=== PATIENT | female | born 1990 | race Caucasian/White ===

== ENCOUNTER 2020-06-06 11:29 | Outpatient (REF) | payer OTHER, SELFPAY ==
[2020-06-06 15:26] LABS: Alanine Aminotransferase 65 U/L (0-31); Albumin Level 4.5 g/dL (3.5-5.0); Alkaline Phosphatase 64 U/L (39-117); Anion Gap 15 (12-20); Aspartate Amino Transferase 44 U/L (5-31); Bilirubin Total 0.4 mg/dL (0.0-1.0); Blood Urea Nitrogen 10 mg/dL (9-16); Calcium 9.1 mg/dL (8.4-10.2); Carbon Dioxide 26 mmol/L (22-29); Chloride 104 mmol/L (96-108); Cholesterol 199 mg/dL; Estimated Glomerular Filt Rate > 60; Glucose Fasting 81 mg/dL (60-99); HDL Cholesterol 61 mg/dL; LDL Cholesterol Calculated 110 mg/dl; Potassium 4.7 mmol/l (3.3-5.1); Sodium 140 mmol/L (135-145); Total Protein 7.2 g/dL (6.5-8.0); Triglycerides 141 mg/dL
== END 2020-06-06 11:30 | disposition home or self-care (01) ==
LOC: HO.HMGCLDS 11:29
PROVIDERS: PCP Nurse Practitioner Family; Visit Provider Nurse Practitioner Family
DX: Z00.00 Encounter for general adult medical examination without abnormal findings (principal)
CPT/HCPCS: 80053; 80061; 84443

== ENCOUNTER 2021-02-27 09:43 | Outpatient (REF) | payer OTHER, SELFPAY ==
--- NOTE | ~2021-02-27 | XR_ITS ---
EXAMINATION: XR KNEE, RIGHT CLINICAL INFORMATION: Pain. COMPARISON: None TECHNIQUE: AP, lateral, tunnel, and sunrise views of the right knee. FINDINGS: Bones and soft tissues are normal. No fracture or significant joint effusion. Alignment is anatomic. Joint spaces are well maintained. No abnormal soft tissue calcification. XR/XR knee RT 4V IMPRESSION: Normal right knee.
== END 2021-02-27 09:44 | disposition home or self-care (01) ==
LOC: HO.XRAY 09:43
PROVIDERS: PCP Nurse Practitioner Family; Visit Provider Nurse Practitioner Family
DX: M25.561 Pain in right knee (principal)
CPT/HCPCS: 73564

== ENCOUNTER 2021-06-07 09:49 | Outpatient (REF) | payer OTHER, SELFPAY ==
[2021-06-07 11:16] LABS: Appearance Urine HAZY; Color Urine YELLOW; Glucose Urine UA NEG (NEG); Leukocyte Esterase Urine TRACE (NEG); MANUAL DIFF FLAG NO; Nitrite Urine NEG (NEG); PH 6.5 (5.0-8.0); Specific Gravity - Urine 1.015 (1.005-1.025); UACC Culture Trigger YES; Urine Blood NEG (NEG); Urine Ketones NEG (NEG); Urine Protein NEG (NEG-TRACE)
[2021-06-07 11:20] LABS: Basophils Percent Auto 0.2 % (0-2); Hemoglobin 14.9 g/dl (12.0-16.0); Imm Gran Abs Auto 0.02 X10*3/uL (0.00-0.03); Imm Gran Pct Auto 0.2 % (0.0-0.4); Lymphocytes Percent Auto 23.3 % (20-40); Mean Corpuscular HGB Conc 33.1 g/dl (31.0-35.0); Mean Corpuscular Hemoglobin 30.7 pg (27.0-33.0); Mean Corpuscular Volume 92.6 fL (80.0-98.0); Mean Platelet Volume 9.7 fL (9.4-12.3); Monocytes Absolute Auto 0.5 X10*3/uL (0.1-1.2); Neutrophils Absolute Auto 6.1 x10*3/uL (2.0-8.3); Neutrophils Percent Auto 70.3 % (45-73); Platelet Count 322 X10*3/uL (160-400); Red Blood Count 4.86 X10*6/uL (4.20-5.50); Red Cell Distribution Width 11.5 % (11.0-16.0); White Blood Count 8.7 X10*3/uL (4.8-10.8)
[2021-06-07 11:34] LABS: Bacteria Urine 3+ /LPF; RBC Urine 0 /HPF (0); Squamous Epithelial Cell Urine 3+ /LPF; WBC Urine 0-2 /HPF (0-4)
[2021-06-07 11:38] LABS: Alanine Aminotransferase 65 U/L (0-31); Albumin Level 4.6 g/dL (3.5-5.0); Alkaline Phosphatase 67 U/L (39-117); Anion Gap 10 (12-20); Aspartate Amino Transferase 40 U/L (5-31); Bilirubin Total 0.8 mg/dL (0.0-1.0); Blood Urea Nitrogen 6 mg/dL (9-16); C Reactive Protein 0.58 mg/dL (< or = 0.50); Calcium 9.5 mg/dL (8.4-10.2); Carbon Dioxide 28 mmol/L (22-29); Chloride 103 mmol/L (96-108); Cholesterol 227 mg/dL; Estimated Glomerular Filt Rate > 60; Glucose Fasting 95 mg/dL (60-99); HDL Cholesterol 62 mg/dL; Iron 102 mcg/dL (30-160); LDL Cholesterol Calculated 130 mg/dl; Percent Iron Saturation 25 % (15-50); Potassium 4.4 mmol/L (3.3-5.1); Sodium 137 mmol/L (135-145); Total Iron Binding Capacity 412 mcg/dL (228-428); Total Protein 7.3 g/dL (6.5-8.0); Triglycerides 178 mg/dL; Unsaturated Iron Binding 310 ug/dL
[2021-06-07 12:00] LABS: Ferritin 67 ng/mL (10-122); TSH reflex Free T4 0.66 uIU/mL (0.32-4.0)
[2021-06-07 12:18] LABS: Folate 9.8 ng/mL (> or = 4.0); Vitamin B12 1050 pg/mL (200-900)
[2021-06-07 12:39] LABS: Erythrocyte Sedimentation Rate 6 MM/HR (0-20)
[2021-06-09 10:35] LABS: Lyme Abs Screen POSITIVE
[2021-06-10 15:06] LABS: Anti Nuclear Antibody Screen NEGATIVE (NEGATIVE)
[2021-06-13 12:22] LABS: 18 KD (IgG) Band NON-REACTIVE; 23 KD (IgG) Band NON-REACTIVE; 23 KD (IgM) Band NON-REACTIVE; 28 KD (IgG) Band NON-REACTIVE; 30 KD (IgG) Band NON-REACTIVE; 39 KD (IgM) Band NON-REACTIVE; 41 KD (IgM) Band NON-REACTIVE; 45 KD (IgG) Band NON-REACTIVE; 58 KD (IgG) Band REACTIVE; 66 KD (IgG) Band NON-REACTIVE; 93 KD (IgG) Band NON-REACTIVE; Lyme IgG Blot Interp NEGATIVE (NEGATIVE); Lyme IgM Blot Interp NEGATIVE (NEGATIVE)
[2021-06-14 06:41] LABS: Antibody to SS-A Antigen <1.0 NEG AI (<1.0 NEG); Antibody to SS-B Antigen <1.0 NEG AI (<1.0 NEG)
== END 2021-06-07 09:50 | disposition home or self-care (01) ==
LOC: HO.HMGCLDS 09:49
PROVIDERS: PCP Nurse Practitioner Family; Visit Provider Nurse Practitioner Family
DX: Z00.00 Encounter for general adult medical examination without abnormal findings (principal); R53.83 Other fatigue
CPT/HCPCS: 36415; 80053; 80061; 81001; 82607; 82728; 82746; 83540; 84443; 85025; 85652; 86038; 86039; 86140; 86235; 86617; 86618; 87086

== ENCOUNTER → 2022-08-26 13:18 | Outpatient (REF) | payer OTHER, SELFPAY ==
--- NOTE | 2022-08-26 13:21 | HM_ITS ---
* Total monitoring time 3 days. * Underlying rhythm is sinus. Average ventricular rate 83/Min. Range 58 to 139/min. * Very rare PVCs- only 2 PVCs over 3 days. * No significant pauses or AV blocks. * Patient symptoms including lightheadedness, chest pain, chest tightness, heart racing correlate with sinus rhythm. MTDD
== END ==
LOC: HO.CARD 13:18
PROVIDERS: PCP Nurse Practitioner Family; Visit Provider Nurse Practitioner Family
DX: R00.0 Tachycardia, unspecified (principal)
CPT/HCPCS: 93242

== ENCOUNTER 2022-09-24 10:17 | Outpatient (REF) | payer OTHER, SELFPAY ==
[2022-09-24 11:04] LABS: MANUAL DIFF FLAG NO
[2022-09-24 11:12] LABS: Basophils Percent Auto 0.1 % (0-2); Hematocrit 44.4 % (37.0-47.0); Hemoglobin 14.9 g/dl (12.0-16.0); Imm Gran Abs Auto 0.02 X10*3/uL (0.00-0.03); Imm Gran Pct Auto 0.3 % (0.0-0.4); Lymphocytes Absolute Auto 1.9 X10*3/uL (1.2-4.9); Lymphocytes Percent Auto 25.4 % (20-40); Mean Corpuscular HGB Conc 33.6 g/dl (31.0-35.0); Mean Corpuscular Hemoglobin 31.4 pg (27.0-33.0); Mean Corpuscular Volume 93.5 fL (80.0-98.0); Mean Platelet Volume 9.5 fL (9.4-12.3); Monocytes Absolute Auto 0.4 X10*3/uL (0.1-1.2); Monocytes Percent Auto 5.6 % (2-11); Neutrophils Absolute Auto 5.3 x10*3/uL (2.0-8.3); Neutrophils Percent Auto 68.6 % (45-73); Platelet Count 378 X10*3/uL (160-400); Red Blood Count 4.75 X10*6/uL (4.20-5.50); Red Cell Distribution Width 11.6 % (11.0-16.0); White Blood Count 7.7 X10*3/uL (4.8-10.8)
[2022-09-24 11:30] LABS: Appearance Urine Clear; Color Urine Yellow; Glucose Urine UA Negative (Negative); Leukocyte Esterase Urine Negative (Negative); Nitrite Urine Negative (Negative); Specific Gravity - Urine 1.015 (1.005-1.025); Urine Blood Negative (Negative); Urine Ketones Negative (Negative); Urine Protein Negative (Neg-Trace)
[2022-09-24 11:50] LABS: Alanine Aminotransferase 17 U/L (0-31); Albumin Level 4.5 g/dL (3.5-5.0); Alkaline Phosphatase 59 U/L (39-117); Anion Gap 11 (12-20); Aspartate Amino Transferase 16 U/L (5-31); Blood Urea Nitrogen 9 mg/dL (9-16); Calcium 9.3 mg/dL (8.4-10.2); Carbon Dioxide 28 mmol/L (22-29); Chloride 104 mmol/L (96-108); Cholesterol 226 mg/dL; Estimated Glomerular Filt Rate > 60; Glucose Fasting 85 mg/dL (60-99); HDL Cholesterol 54 mg/dL; LDL Cholesterol Calculated 154 mg/dl; Potassium 4.4 mmol/L (3.3-5.1); Sodium 139 mmol/L (135-145); Total Protein 7.3 g/dL (6.5-8.0); Triglycerides 93 mg/dL
[2022-09-24 12:07] LABS: TSH reflex Free T4 0.63 uIU/mL (0.32-4.0)
== END 2022-09-24 10:18 | disposition home or self-care (01) ==
LOC: HO.HMGCLDS 10:17
PROVIDERS: PCP Nurse Practitioner Family; Visit Provider Nurse Practitioner Family
DX: Z00.00 Encounter for general adult medical examination without abnormal findings (principal)
CPT/HCPCS: 36415; 80053; 80061; 81003; 84443; 85025

== ENCOUNTER 2024-04-26 08:57 | Outpatient (AMB) | payer BC, SELFPAY ==
[2024-04-26 09:00] VITALS: BP 112/74; PULSE 85; O2SAT 99; BMI 28.2
--- NOTE | 2024-04-26 09:00 | A.OFFPC_ITS ---
Vital Signs 04/26/24 09:00 Height 5 ft 5 in Weight 169 lb 6 oz BMI 28.2 BP 112/74 Blood Pressure Location Lt brachial Position Sitting Pulse 85 Pulse Source Pulse Oximeter Pulse Oximetry (%) 99 Oxygen Delivery Method Room Air Intake Visit Reasons: reschedule from 04/05 Intake Note: Pt is here today for follow up. Allergies ibuprofen [IBUPROFEN] Allergy (Unknown, Verified 04/26/24 09:00) ASTHMA naproxen [Aleve] Allergy (Unknown, Verified 04/26/24 09:00) unknown NSAIDS (Non-Steroidal Anti-Inflamma [NSAIDS (NON-STEROIDAL ANTI-INFLAMMA] Allergy (Unknown, Verified 04/26/24 09:00) FACIAL SWELLING oxycodone [Percocet] Allergy (Unknown, Verified 04/26/24 09:00) swelling Medication List - Last Reconciled 04/26/24 by YENIFER Conroy- albuterol sulfate 2.5 mg (0.5 mL) inhalation Q6H PRN albuterol sulfate 90 mcg/actuation 2 puffs inhalation Q6H PRN albuterol sulfate 90 mcg/actuation (Ventolin HFA) 1 inh inhalation QID PRN 30 days benralizumab mg subcut clobetasol 0.05% 1 appl topical BID 2 weeks dextroamphetamine-amphetamine 5 mg 1 tab PO BID diazepam 5 mg PO DAILY PRN 30 days epinephrine IM famotidine 20 mg PO BEDTIME fluticasone furoate-vilanterol 100-25 mcg/dose (Breo Ellipta) 1 ea inhalation DAILY ipratropium-albuterol 0.5 mg-3 mg(2.5 mg base)/3 mL 3 mL inhalation Q6-8H PRN 30 days zafirlukast 20 mg PO BID Tobacco use date assessed: 04/26/24 Dental Screening Dental Screen Date: 04/26/24 Did you have a dental visit in the last 12 months?: Yes Did you have a dental problem in the last 6 months where you did not have access to dental care?: No Was dental information given to patient?: Patient has dentist HPI reschedule from 04/05 HPI Details Pt is here for a PE. Will order labs. 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 Pt has faint erythematous patches to her AC regions (eczema). Will send cream and refer to derm. [facility] Medical History Eczema Anxiety Pulmonary embolism Dyslipidemia HTN (hypertension) Active asthma Surgical History H/O tubal ligation History of bilateral salpingectomy Family History Father History of heart attack Mother Stage III squamous cell carcinoma of lung Mother Cervical cancer HTN (hypertension) Maternal Aunt Breast cancer Maternal Grandmother Uterine cancer Sister No problems noted. Daughter No problems noted. Social History Housing: House Alcohol intake: current Alcohol intake frequency: other Patient Tobacco Use Status: Never used Tobacco e-Cigarette/Vaping Use: Never Used Second Hand Smoke Exposure: No service: No Current occupational status: employed Current occupation: [employer] Current occupational exposures/hazards: No Cognitive needs: No Hearing needs: No Vision needs: No Questionnaire PHQ-9 Over the last 2 weeks, how often have you been bothered by any of the following problems? 1. Little interest or pleasure in doing things: more than half the days 2. Feeling down, depressed, or hopeless: more than half the days 3. Trouble falling or staying asleep, or sleeping too much: more than half the days 4. Feeling tired or having little energy: more than half the days 5. Poor appetite or overeating: more than half the days 6. Feeling bad about yourself - or that you are a failure or have let yourself or your family down: more than half the days 7. Trouble concentrating on things, such as reading the newspaper or watching television: more than half the days 8. Moving or speaking so slowly that other people could have noticed. Or the opposite - being so fidgety or restless that you have been moving around a lot more than usual: not at all 9. Thoughts that you would be better off or of hurting yourself in some way: not at all Total score: 14 Depression Screening Interpretation: Positive (has a therapist, denies any si or hi) Depression Screening Follow-up: Existing condition Depression Screening Done: Yes 45678 - PHQ-9 Billing: Yes Source: Developed by Drs. Wilberto Black, Sharon Diaz, Amos Huston and colleagues, with an educational juana from [employer]. Thrive Questionnaire Date Thrive assessed: 04/26/24 I am a: Patient What is your living situation today?: I have a steady place to live Within the past 12 months, did the food you bought not last and you didn't have the money to get more?: Never true Within the past 12 months, did you worry whether your food would run out before you got money to buy more?: Never true Do you have trouble paying for medicines?: No Do you have trouble getting transportation to medical appointments?: No Do you have trouble paying your heating and electricity bill?: No Do you have trouble taking care of your child, family member or friend?: No Do you have trouble with day-to-day activities such as bathing, preparing meals, shopping, managing finances, etc.?: No Are you currently unemployed and looking for a job?: No Are you interested in more education?: No Please select the resources that you would like help with: None Currently or been in a relationship where the following occur: No concerns reported THRIVE Score: 0 AUDIT C Alcohol Use Questionnaire (AUDIT-C) 1. How often do you have a drink containing alcohol?: 2-3 times a week 2. How many drinks containing alcohol do you have on a typical day when you are drinking?: 1 or 2 3. How often do you have six or more drinks on one occasion?: Less than monthly Total Score: 4 Score Reviewed/Action Taken: Yes SINAN-7 AMB Questionnaire SINAN-7 Date SINAN - 7 assessed: 04/26/24 Feeling nervous, anxious, or on edge: 2 = More than half the days Not being able to stop or control worryin = More than half the days Worrying too much about different things: 2 = More than half the days Trouble relaxin = More than half the days Being so restless that it is hard to sit still: 0 = Not at all Becoming easily annoyed or irritable: 2 = More than half the days Feeling afraid as if something awful might happen: 1 = Several days Total SINAN-7 score (0-4 normal; 5-9 mild; 10-14 moderate; 15-21 severe): 11 Source: Developed by Drs. Wilberto Black, Sharon Diaz, Amos Huston and colleagues, with an educational juana from [employer]. SINAN-7 Assessment Billing SINAN-7 Assessment Tool: SINAN-7 Assessment [id number] (has a therapiist, denies any SI or HI) Review of Systems Const Denies chills and Denies fever(s) Eyes Denies blurry vision ENT Denies vertigo, Denies dizziness and Denies sore throat Card Denies chest pain at rest, Denies chest pain with activity, Denies diaphoresis, Denies dyspnea and Denies dyspnea on exertion Resp Denies cough, Denies dyspnea, Denies dyspnea on exertion and Denies wheezing GI Denies abdominal pain, Denies melena, Denies hematochezia, Denies constipation, Denies diarrhea and Denies loose stools Denies hematuria Musc Denies numbness and Denies tingling Skin/Breast Denies lesions Neuro Denies vertigo, Denies dizziness, Denies numbness and Denies tingling Psych Denies anxiety, Denies depression, Denies homicidal ideation, Denies suicidal ideation and Denies other (substance abuse) Aller/Immun Denies wheezing Physical exam (Primary Care) Vital Signs: Last Vital Signs Pulse 85 04/26/24 09:00 BP 112/74 04/26/24 09:00 Pulse Ox 99 04/26/24 09:00 Oxygen Delivery Method Room Air 04/26/24 09:00 BMI result Body Mass Index 28.2 Tobacco/Smoking Status: Tobacco use Status Tobacco use date assessed 04/26/24 04/26/24 09:02 Patient Tobacco Use Status Never used Tobacco 04/26/24 09:02 e-Cigarette/Vaping Use Never Used 04/26/24 09:02 PHQ-9: PHQ-9 Score PHQ-9: Total score 14 04/26/24 09:02 Depression Screening Interpretation: Positive (has a therapist, denies any si or hi) Depression Screening Follow-up: Existing condition Thrive Assessment: Date of Thrive Assessment Date Thrive assessed 04/26/24 04/26/24 09:02 Currently or been in a relationship where the following occur: No concerns reported Const General: cooperative Nutritional Appearance: well nourished Orientation/consciousness: patient oriented x3 HENMT Head: Yes normal to inspection, Yes normocephalic and Yes atraumatic Ears: TM's normal bilaterally Eyes General: appearance normal, both eyes and all related structures Alignment and Position: alignment normal and position normal Neck Neck: Yes normal visual inspection, Yes no lymphadenopathy and Yes supple Resp Effort & Inspection: normal respiratory effort Auscultation: clear to auscultation bilaterally Cardio Rate: regular rate Rhythm: regular rhythm Heart sounds: S1 normal heart sound present, S2 normal heart sound present and no murmurs GI Palpation (GI): Soft to palpation and nontender Auscultation: normal bowel sounds Skin Other: AC regions with faint erythematous patches (eczema) Neuro General: patient oriented x3, moves all extremities, no focal motor deficits and deep tendon reflexes 2+ bilaterally Romberg Test: Negative Psych Appearance: grossly normal Mental Status: mental status grossly normal Speech and movement: Normal speech and movement present Affect: normal affect Attitude: cooperative Thought process: Normal thought process present Thought content: Normal thought content present Insight: Good insight present (Psych) Judgement: Good judgement present (Psych) Assessment and Plan Assessment & Plan (1) Physical exam: Code(s): Z00.00 - Encounter for general adult medical examination without abnormal findings Plan: Labs ordered (2) Eczema: Code(s): L30.9 - Dermatitis, unspecified (3) Screening for cervical cancer: Code(s): Z12.4 - Encounter for screening for malignant neoplasm of cervix Plan The patient agreed to the use of a emergency medical service manager for this encounter. Scribed for BROOKE Smith by Jia Parsons emergency medical service manager, on 04/26/2024 at 09:15 EST. Orders: Orders Complete Blood Count Auto Diff Today Z00.00 - Encounter for general adult medical examination without abnormal findings TSH reflex Free T4 Today Z00.00 - Encounter for general adult medical examination without abnormal findings UA CC w/rflx Micro + Cult Today Z00.00 - Encounter for general adult medical examination without abnormal findings Lipid Panel Today Z00.00 - Encounter for general adult medical examination without abnormal findings Comprehensive [place]. Panel Fast Today Z00.00 - Encounter for general adult medical examination without abnormal findings Referrals Dermatology Referral L30.9 - Dermatitis, unspecified NURSE WOUND Referral Z12.4 - Encounter for screening for malignant neoplasm of cervix Medications: New betamethasone valerate 0.1% 1 appl topical DAILY PRN 45 grams 1RF skin irritation Coding Level of Care Code Est Pt Prev Care 18-39y(65076) Diagnoses Physical exam Z00.00 Eczema L30.9 Screening for cervical cancer Z12.4 Additional Codes SINAN-7 Assessment Billing - SINAN-7 Assessment Tool: SINAN-7 Assessment [id number] ([id number])
== END 2024-04-26 09:29 | disposition home or self-care (01) ==
PROVIDERS: PCP Nurse Practitioner Family; Visit Provider Nurse Practitioner Family
DX: Z00.00 Encounter for general adult medical examination without abnormal findings (principal); L30.9 Dermatitis, unspecified; Z12.4 Encounter for screening for malignant neoplasm of cervix

== ENCOUNTER → 2024-04-26 08:57 | Outpatient (BNVA) | payer BC, SELFPAY | PROVIDERS: PCP Nurse Practitioner Family; Visit Provider Nurse Practitioner Family | DX: Z00.00 Encounter for general adult medical examination without abnormal findings (principal); L30.9 Dermatitis, unspecified | CPT/HCPCS: 96127; 99395 ==

== ENCOUNTER 2024-04-26 09:29 | Outpatient (REF) | payer OTHER, SELFPAY ==
[2024-04-26 13:16] LABS: MANUAL DIFF FLAG NO
[2024-04-26 13:27] LABS: Basophils Percent Auto 0.3 % (0-2); Hematocrit 44.6 % (37.0-47.0); Hemoglobin 14.9 g/dl (12.0-16.0); Imm Gran Abs Auto 0.02 X10*3/uL (0.00-0.03); Imm Gran Pct Auto 0.3 % (0.0-0.4); Lymphocytes Absolute Auto 1.8 X10*3/uL (1.2-4.9); Lymphocytes Percent Auto 26.5 % (20-40); Mean Corpuscular HGB Conc 33.4 g/dl (31.0-35.0); Mean Corpuscular Hemoglobin 31.3 pg (27.0-33.0); Mean Corpuscular Volume 93.7 fL (80.0-98.0); Mean Platelet Volume 9.6 fL (9.4-12.3); Monocytes Absolute Auto 0.4 X10*3/uL (0.1-1.2); Monocytes Percent Auto 6.2 % (2-11); Neutrophils Absolute Auto 4.5 x10*3/uL (2.0-8.3); Neutrophils Percent Auto 66.7 % (45-73); Platelet Count 353 X10*3/uL (160-400); Red Blood Count 4.76 X10*6/uL (4.20-5.50); Red Cell Distribution Width 11.9 % (11.0-16.0); White Blood Count 6.8 X10*3/uL (4.8-10.8)
[2024-04-26 13:59] LABS: Alanine Aminotransferase 28 U/L (0-31); Albumin Level 4.5 g/dL (3.5-5.0); Alkaline Phosphatase 62 U/L (39-117); Anion Gap 15 (12-20); Aspartate Amino Transferase 22 U/L (5-31); Bilirubin Total 0.9 mg/dL (0.0-1.0); Blood Urea Nitrogen 8 mg/dL (9-16); Calcium 9.6 mg/dL (8.4-10.2); Carbon Dioxide 24 mmol/L (22-29); Chloride 105 mmol/L (96-108); Cholesterol 209 mg/dL (<200); Estimated Glomerular Filt Rate > 60; Glucose Fasting 97 mg/dL (60-99); HDL Cholesterol 60 mg/dL (>40); LDL Cholesterol Calculated 112 mg/dL (<100); Potassium 3.8 mmol/L (3.3-5.1); Sodium 140 mmol/L (135-145); TSH reflex Free T4 0.61 uIU/mL (0.32-4.0); Total Protein 7.4 g/dL (6.5-8.0); Triglycerides 188 mg/dL (<150)
== END 2024-04-26 09:30 | disposition home or self-care (01) ==
LOC: HO.HMGCLDS 09:29
PROVIDERS: PCP Nurse Practitioner Family; Visit Provider Nurse Practitioner Family
DX: Z00.00 Encounter for general adult medical examination without abnormal findings (principal)
CPT/HCPCS: 36415; 80053; 80061; 84443; 85025

== ENCOUNTER 2024-08-03 09:21 | Outpatient (AMB) | payer BC, SELFPAY ==
--- NOTE | 2024-08-03 09:22 | A.OFFVIS_ITS ---
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 General Assistant Required: No Information Interpreted: clinical only Electric Meter Tester: Electric Meter Tester Present Allergies ibuprofen [IBUPROFEN] Allergy (Unknown, Verified 08/03/24 09:26) ASTHMA naproxen [Aleve] Allergy (Unknown, Verified 08/03/24 09:26) unknown NSAIDS (Non-Steroidal Anti-Inflamma [NSAIDS (NON-STEROIDAL ANTI-INFLAMMA] Allergy (Unknown, Verified 08/03/24 09:26) FACIAL SWELLING oxycodone [Percocet] Allergy (Unknown, Verified 08/03/24 09:26) swelling Medication List - Last Reconciled 08/03/24 by Emilee Galeana CNM albuterol sulfate 2.5 mg (0.5 mL) inhalation Q6H PRN albuterol sulfate 90 mcg/actuation 2 puffs inhalation Q6H PRN albuterol sulfate 90 mcg/actuation (Ventolin HFA) 1 inh inhalation QID PRN 30 days benralizumab mg subcut betamethasone valerate 0.1% 1 appl topical DAILY PRN clobetasol 0.05% 1 appl topical BID 2 weeks dextroamphetamine-amphetamine 5 mg 1 tab PO BID diazepam 5 mg PO DAILY PRN 30 days epinephrine IM famotidine 20 mg PO BEDTIME fluticasone furoate-vilanterol 100-25 mcg/dose (Breo Ellipta) 1 ea inhalation DAILY ipratropium-albuterol 0.5 mg-3 mg(2.5 mg base)/3 mL 3 mL inhalation Q6-8H PRN 30 days ondansetron 8 mg PO Q12H PRN 10 days scopolamine base 1 patch transdermal Q3D PRN zafirlukast 20 mg PO BID Is last menstrual period known: Yes Last menstrual period: 07/08/24 HPI HPI 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 She used to go some place towards the [place] part of [facility] and also in [facility]. She had delivered her 1st child at [facility] under the care of Dr. Perez and other colleagues. She has never had an abnormal Pap smear she has had her tubes tied for control. She had used IUDs twice but had lots of pain with them and they never sat well and she was told it was because position of her uterus. Additionally she was on control pills awaiting the tubal ligation surgery and ended up with a pulmonary embolism 5 days after the stopping of the control pills and the surgery and was on blood thinners for year she said she was tested for clotting disorders and nothing genetic showed up. She gets terrible cramps with her periods but she is allergic to NSAIDs and also oxycodone though she can take Vicodin if she has a tooth pulled her something. She has significant allergies and asthma and eczema. [facility] Medical History (Updated 08/03/24 @ 10:21 by Emilee Galeana CNM) Eczema Anxiety Pulmonary embolism Dyslipidemia HTN (hypertension) Active asthma Surgical History (Updated 08/03/24 @ 10:21 by Emilee Galeana CNM) H/O tubal ligation History of bilateral salpingectomy Family History Father History of heart attack Mother Stage III squamous cell carcinoma of lung Mother Cervical cancer HTN (hypertension) Maternal Aunt Breast cancer Maternal Grandmother Uterine cancer Sister No problems noted. Daughter No problems noted. Social History Housing: House Alcohol intake: current Alcohol intake frequency: other Patient Tobacco Use Status: Never used Tobacco e-Cigarette/Vaping Use: Never Used Second Hand Smoke Exposure: No service: No Current occupational status: employed Current occupation: [employer] Current occupational exposures/hazards: No Cognitive needs: No Hearing needs: No Vision needs: No Female Reproductive History Menstrual Age of Menarche: 12 Duration of menses: 3-5 days Date of last menstrual period: 07/08/24 control method: permanent sterilization Total pregnancies: 2 Full term: 2 History of abnormal pap smear: No (2022,neg.) Physical Exam Vital Signs: Last Vital Signs BP 116/78 08/03/24 09:25 BMI result Body Mass Index 29.1 Const Other: Several patches of eczema noted. General: healthy appearing, comfortable, no acute distress, well developed and alert Nutritional Appearance: average body habitus Orientation/consciousness: patient oriented x3 Limitations: no limitations HEENT Head: Yes normocephalic Neck Neck: Yes normal visual inspection Chest Chest palpation & inspection: normal inspection of the chest Breast/axilla inspection: normal inspection of the breasts and normal inspection of the axillae Breast/axilla palpation: normal palpation of the breasts and normal palpation of the axillae Resp Effort & Inspection: normal respiratory effort GI Inspection: Yes normal to inspection, No Abdominal wall edema and No distended Palpation (GI): Soft to palpation and nontender Other: External exam within normal limits vagina pink and moist with white scant mucousy discharge cervix multiparous pink mobile smooth uterus small anteverted mobile nontender adnexa nontender very good tone with Kegel. General: Yes bladder normal to palpation External Female Exam: normal external appearance and normal appearance of the urethra Speculum Exam - Vagina: normal appearance of the vagina, normal palpation and normal vaginal discharge Speculum Exam - Cervix: normal appearance of the cervix, normal palpation and nontender Bimanual exam- vagina & uterus: normal bimanual exam, normal palpation, uterine size normal, bladder normal to palpation, consistency normal, normal palpation, uterine mobility normal, uterine shape normal, No Cervical tenderness present, non-tender and no cervical motion tenderness Bimanual Exam- Adnexa, other: normal adnexae, no masses, normal and No adnexal tenderness Neuro General: patient oriented x3 Assessment & Plan Assessment & Plan (1) Family hx-breast malignancy: Comment: her aunt Code(s): Z80.3 - Family history of malignant neoplasm of breast Category: Medical (2) Screening for cervical cancer: Code(s): Z12.4 - Encounter for screening for malignant neoplasm of cervix Category: Medical (3) Eczema: Code(s): L30.9 - Dermatitis, unspecified Category: Medical (4) Hx of pulmonary embolus: Code(s): Z86.711 - Personal history of pulmonary embolism Category: Medical (5) Dysmenorrhea, unspecified: Code(s): N94.6 - Dysmenorrhea, unspecified Category: Medical Plan -----Discussed in this visit the following: healthy balanced diet, regular and consistent exercise, getting recommended health screens, doing the best she can for her particular health concerns, kegel exercises, pap smear screening and followup recommendations, mammography screening and SBE, normal changes in cycles in her life stage--- . Discussed her challenges her medical history with her pulmonary embolism and herallergies to NSAIDs and her previous history of developing the PE 5 days postop and after stopping the OCPs. Discussed that solutions for her d ysmenorrhea would be challenging especially as she has also had negative experiences with Mirena IU S in the past as well. Discussed that progestin only OCPs might be worth a consideration but would not be without risk and not necessarily guarantee to be of absolutely benefit in lightening her periods. 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 Coding Level of Care Code New Pt Prev Care 18-39yr([id number] Diagnoses Family hx-breast malignancy Z80.3 Screening for cervical cancer Z12.4 Eczema L30.9 Hx of pulmonary embolus Z86.711 Dysmenorrhea, unspecified N94.6
[2024-08-03 09:25] VITALS: BP 116/78; BMI 29.1
== END 2024-08-03 10:25 | disposition home or self-care (01) ==
PROVIDERS: PCP Nurse Practitioner Family; Visit Provider Advanced Practice Midwife
DX: Z01.419 Encounter for gynecological examination (general) (routine) without abnormal findings (principal); L30.9 Dermatitis, unspecified; Z80.3 Family history of malignant neoplasm of breast; Z86.711 Personal history of pulmonary embolism
CPT/HCPCS: 99385; 99459

== ENCOUNTER 2024-08-03 09:21 | Outpatient (REF) | payer BC, SELFPAY ==
[2024-08-04 02:47] LABS: CT PCR NOT DETECTED (Not Detect.); NG PCR NOT DETECTED (Not Detect.)
[2024-08-04 11:32] LABS: Bacterial Vaginosis PCR NEGATIVE (Negative); Candida Group PCR NOT DETECTED (Not Detect); Candida glab krusei PCR NOT DETECTED (Not Detect); Trichomonas vaginalis PCR NOT DETECTED (Not Detect)
== END 2024-08-03 09:22 | disposition home or self-care (01) ==
LOC: HO.LAB 09:21
PROVIDERS: PCP Nurse Practitioner Family; Visit Provider Advanced Practice Midwife
DX: N89.8 Other specified noninflammatory disorders of vagina (principal)
CPT/HCPCS: 81515; 87491; 87591

== ENCOUNTER 2024-08-03 10:21 | Outpatient (REF) | payer BC, SELFPAY ==
[2024-08-04 11:05] LABS: HPV 16,18/45 See PAP report
== END 2024-08-03 10:22 | disposition home or self-care (01) ==
LOC: HO.LNP 10:21
PROVIDERS: Visit Provider Advanced Practice Midwife
DX: Z01.419 Encounter for gynecological examination (general) (routine) without abnormal findings (principal)
CPT/HCPCS: 87626; 88175

== ENCOUNTER 2024-10-26 13:08 | Outpatient (AMB) | payer BC, SELFPAY ==
--- NOTE | 2024-10-26 13:13 | A.OFFPC_ITS ---
Vital Signs 10/26/24 13:15 Height 5 ft 5 in Weight 174 lb BMI 29.0 BP 118/74 Blood Pressure Location Lt brachial Position Sitting Pulse 81 Pulse Source Pulse Oximeter Pulse Oximetry (%) 98 Oxygen Delivery Method Room Air Intake Visit Reasons: 6 months f/up Accompanied by: Self / Same As Patient Allergies ibuprofen [IBUPROFEN] Allergy (Unknown, Verified 08/03/24 09:26) ASTHMA naproxen [Aleve] Allergy (Unknown, Verified 08/03/24 09:26) unknown NSAIDS (Non-Steroidal Anti-Inflamma [NSAIDS (NON-STEROIDAL ANTI-INFLAMMA] Allergy (Unknown, Verified 08/03/24 09:26) FACIAL SWELLING oxycodone [Percocet] Allergy (Unknown, Verified 08/03/24 09:26) swelling Medication List - Last Reconciled 10/26/24 by Basihr Gomes, WASTE [employer]POSAL PLANT OPERATOR- albuterol sulfate 2.5 mg (0.5 mL) inhalation Q6H PRN albuterol sulfate 90 mcg/actuation 2 puffs inhalation Q6H PRN albuterol sulfate 90 mcg/actuation (Ventolin HFA) 1 inh inhalation QID PRN 30 days benralizumab mg subcut betamethasone valerate 0.1% 1 appl topical DAILY PRN clobetasol 0.05% 1 appl topical BID 2 weeks dextroamphetamine-amphetamine 5 mg 1 tab PO BID diazepam 5 mg PO DAILY PRN 30 days epinephrine IM famotidine 20 mg PO BEDTIME fluticasone furoate-vilanterol 100-25 mcg/dose (Breo Ellipta) 1 ea inhalation DAILY ipratropium-albuterol 0.5 mg-3 mg(2.5 mg base)/3 mL 3 mL inhalation Q6-8H PRN 30 days scopolamine base 1 patch transdermal Q3D PRN zafirlukast 20 mg PO BID Tobacco use date assessed: 10/26/24 Dental Screening Dental Screen Date: 10/26/24 Did you have a dental visit in the last 12 months?: Yes Did you have a dental problem in the last 6 months where you did not have access to dental care?: No Was dental information given to patient?: Patient has dentist HPI 6 months f/up HPI Details Chief Complaint The patient presents for a follow-up regarding her management of dyslipidemia and hypertension. History of Present Illness The patient is a 34-year-old female presenting with dyslipidemia and essential hypertension for follow-up. She denies any symptoms of chest pain or shortness of breath. Her asthma, currently well-controlled, does not interfere with her current treatment plan. She is aware of her elevated BMI and discussed the limited success from previous attempts to manage this through dietary and exercise regimens (had seen a accessibility lift technician and had a ultimate hoops trainer previously). The introduction of a GLP-1 agonist medication was considered, aligning with her health objectives. Insurance coverage for these options, namely Wegovy or Zepbound, was also discussed as part of her management plan. Social History - Attempts at weight management through working with a ultimate hoops trainer and accessibility lift technician were discussed. Health Maintenance - Discussion of elevated BMI and weight management options, including the potential use of GLP-1 agonists. Review of Systems - Respiratory: Denies shortness of breat h. - Cardiovascular: Denies chest pain. -denies any AGUILAR, dizziness, or blurred vi claudio Physical Exam General: Cooperative, healthy appearing, comfortable, no acute distress and well developed, elevated BMI Orientation: Patient oriented x3 Limitations: No limitations Head: Normal to inspection Ears: Hearing grossly normal bilaterally Nose: Normal external nose present Face and sinus: Normal facial exam Eyes: Appearance normal, both eyes and all related structures Neck: Normal visual inspection and Yes full ROM Respiratory: Normal respiratory effort and able to speak in complete sentences. Clear to auscultation bilaterally Cardiovascular: Regular rate and rhythm. Normal S1 and S2 GI: Normal to inspection. Soft to palpation and nontender Skin: No rashes or lesions noted Neuro: Patient oriented x3 Extremities: Normal to inspection Results Plan I plan to conduct a lipid panel to evaluate her cholesterol and obtain other pertinent lab tests. We discussed considering a GLP-1 agonist for weight management, and she will verify coverage for medications like Wegovy or Zepbound. Continuous follow-up is necessary to monitor and address her chronic conditions, as well as verify any medication efficacy. Her asthma remains under specialist management without current health impact. Discussion Notes I reviewed the management strategies for dyslipidemia and hypertension, discussing the potential use of GLP-1 agonists for managing her elevated BMI. We talked about the benefits and expected outcomes of introducing such medications and the need to ensure these are covered by insurance. I emphasized the importance of monitoring and adjusting her comprehensive management plan as needed and encouraged her to follow up with her insurance regarding medication coverage. The continued success in controlling her asthma was noted. Patient Instructions - Check with your insurance about covera ge for Wegovy or Zepbound. - Continue monitoring asthma under the c are of your specialist. - Follow up for labs to assess cholester ol levels and general health. - Consider lifestyle modifications along side any new medication. - Report any concerns or symptoms prompt ly. [facility] Medical History (Updated 10/26/24 @ 13:30 by Bashir Gomes [facility]) Eczema Anxiety Pulmonary embolism Dyslipidemia HTN (hypertension) Active asthma Surgical History H/O tubal ligation History of bilateral salpingectomy Family History Father History of heart attack Mother Stage III squamous cell carcinoma of lung Mother Cervical cancer HTN (hypertension) Maternal Aunt Breast cancer Maternal Grandmother Uterine cancer Sister No problems noted. Daughter No problems noted. 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 1. Little interest or pleasure in doing things: several days 2. Feeling down, depressed, or hopeless: several days 3. Trouble falling or staying asleep, or sleeping too much: several days 4. Feeling tired or having little energy: several days 5. Poor appetite or overeating: several days 6. Feeling bad about yourself - or that you are a failure or have let yourself or your family down: several days 7. Trouble concentrating on things, such as reading the newspaper or watching television: several days 8. Moving or speaking so slowly that other people could have noticed. Or the opposite - being so fidgety or restless that you have been moving around a lot more than usual: not at all 9. Thoughts that you would be better off or of hurting yourself in some way: not at all Total score: 7 Depression Screening Interpretation: Negative Depression Screening Done: Yes 75249 - PHQ-9 Billing: Yes Source: Developed by Drs. Wilberto Black, Sharon Diaz, Amos Huston and colleagues, with an educational juana from [employer]. Thrive Questionnaire Date Thrive assessed: 10/26/24 I am a: Patient What is your living situation today?: I have a steady place to live Within the past 12 months, did the food you bought not last and you didn't have the money to get more?: Never true Within the past 12 months, did you worry whether your food would run out before you got money to buy more?: Never true Do you have trouble paying for medicines?: No Do you have trouble getting transportation to medical appointments?: No Do you have trouble paying your heating and electricity bill?: No Do you have trouble taking care of your child, family member or friend?: No Do you have trouble with day-to-day activities such as bathing, preparing meals, shopping, managing finances, etc.?: No Are you currently unemployed and looking for a job?: No Are you interested in more education?: No Please select the resources that you would like help with: None Currently or been in a relationship where the following occur: No concerns reported THRIVE Score: 0 AUDIT C Alcohol Use Questionnaire (AUDIT-C) 1. How often do you have a drink containing alcohol?: Monthly or less 2. How many drinks containing alcohol do you have on a typical day when you are drinking?: 1 or 2 3. How often do you have six or more drinks on one occasion?: Less than monthly Total Score: 2 Score Reviewed/Action Taken: Yes SINAN-7 AMB Questionnaire SINAN-7 Date SINAN - 7 assessed: 10/26/24 Feeling nervous, anxious, or on edge: 0 = Not at all Not being able to stop or control worryin = Not at all Worrying too much about different things: 1 = Several days Trouble relaxin = Several days Being so restless that it is hard to sit still: 1 = Several days Becoming easily annoyed or irritable: 1 = Several days Feeling afraid as if something awful might happen: 0 = Not at all Total SINAN-7 score (0-4 normal; 5-9 mild; 10-14 moderate; 15-21 severe): 4 Source: Developed by Drs. Wilberto Black, Sharon Diaz, Amos Huston and colleagues, with an educational juana from [employer]. SINAN-7 Assessment Billing SINAN-7 Assessment Tool: SINAN-7 Assessment 00778 Physical exam (Primary Care) Vital Signs: Last Vital Signs Pulse 81 10/26/24 13:15 BP 118/74 10/26/24 13:15 Pulse Ox 98 10/26/24 13:15 Oxygen Delivery Method Room Air 10/26/24 13:15 BMI result Body Mass Index 29.0 Tobacco/Smoking Status: Tobacco use Status Tobacco use date assessed 10/26/24 10/26/24 13:18 Patient Tobacco Use Status Never used Tobacco 10/26/24 13:13 e-Cigarette/Vaping Use Never Used 10/26/24 13:13 PHQ-9: PHQ-9 Score PHQ-9: Total score 7 10/26/24 13:18 Depression Screening Interpretation: Negative Thrive Assessment: Date of Thrive Assessment Date Thrive assessed 10/26/24 10/26/24 13:18 Currently or been in a relationship where the following occur: No concerns reported Coding Level of Care Code Est Pt Level 3 (77593) Diagnoses HTN (hypertension) I10 Dyslipidemia E78.5 Obesity E66.9 Additional Codes SINAN-7 Assessment Billing - SINAN-7 Assessment Tool: SINAN-7 Assessment 56247 ([id number]) PHQ-9 - 70883 - PHQ-9 Billing: Yes ([id number]) Assessment & Plan Assessment & Plan (1) HTN (hypertension): Code(s): I10 - Essential (primary) hypertension Category: Medical (2) Dyslipidemia: Code(s): E78.5 - Hyperlipidemia, unspecified Category: Medical (3) Obesity: Code(s): E66.9 - Obesity, unspecified Category: Medical Plan . Orders: Orders TSH reflex Free T4 Today E78.5 - Hyperlipidemia, unspecified, I10 - Essential (primary) hypertension UA CC w/rflx Micro + Cult Today E78.5 - Hyperlipidemia, unspecified, I10 - Essential (primary) hypertension Lipid Panel Today E78.5 - Hyperlipidemia, unspecified, I10 - Essential (primary) hypertension Complete Blood Count Auto Diff Today E78.5 - Hyperlipidemia, unspecified, I10 - Essential (primary) hypertension Comprehensive [place]. Panel Fast Today E78.5 - Hyperlipidemia, unspecified, I10 - Essential (primary) hypertension
[2024-10-26 13:15] VITALS: BP 118/74; PULSE 81; O2SAT 98; BMI 29.0
--- OUTSIDE RECORDS SUMMARY | 2024-10-26 15:22 | XMS_ITS ---
Author Organization [facility], [facility] Address [address], [place] [id number] Care Team Providers Care Commercial Loan Processor Name Role Phone GLENIS TATE Primary Care Provider [phone] ALEIDA KAUR Unavailable [phone] REASON FOR VISIT New Referral Request Encounters Encounter Location Date Provider Diagnosis [facility], [facility] [address], [place] [phone] 02/11/2024 ALEIDA KAUR PLAN OF TREATMENT No Information Progress Notes * KERMIT ARNOLDDOB:1990 (33 yo F)Acc No.[id number]:02/11/2024 Patient:??KERMIT ARNOLD :1990?Age:33 Y?Sex:Fe male Phone: Address:[address] [place], [place] [address] [facility] [place] [address] * true * Date:??
--- OUTSIDE RECORDS SUMMARY | 2024-10-26 15:22 | XMS_ITS | Clinical Summary ---
Author Organization [facility] [employer] [facility] Address [address] [place] [address] Care Team Providers Care Scientist Electronics Name Role Phone Unavailable Primary Care Provider Unavailabl e Social History Tobacco Use Types Packs/Day Years Used Date Smoking Tobacco: Never Assessed Comments Unknown Sex and Gender Information Value Date Recorded Sex Assigned at Not on file Legal Sex Female 7:54 AM EST Gender Identity Not on file Sexual Orientation Not on file Plan of Treatment Health Maintenance Due Date Last Done Comments Depression: Screening Annually using PHQ-2/9 in Adults 18 yrs or above (or HM Modifier)([facility]) 1990 DTaP/Tdap/Td Vaccines ([facility]) (6 - Tdap) 2001 10/16/1994, 12/07/1991, 03/04/1991, Additional history exists Hepatitis C Virus Infection in Adolescents and Adults: Screening (or Modifier) ([facility]) 2008 SDOH Screening Reminder: Annually for all adults ([facility]) 2008 Tobacco Smoking Cessation: i n Adults excluding Women: Behavioral and Pharmacotherapy Interventions ([facility]) 2008 Lipid Screening: Once for Women aged 20 to 45 yrs ([facility]) 2010 Cervical Cancer Screenin-65 yrs of age (or Modifier) 2011 Cervical Cancer Screening: Pap every 3 yrs pts age 21-65 2011 Cervical Cancer: Pap Screening with Modifier timing ([facility]) 2011 Cervical Cancer: hrHPV alone or with cotesting Pap for Pts 30-65yrs screening every 5yrs ([facility]) 2011 Flu Vaccination: Yearly for ages 18mos through 64 years (or Modifier)([facility]) 02/26/2024 COVID-19 Vaccine Screening: Initial Series and Booster Status ([facility]) (2023- season) 2024 Zoster/Shingles Vaccine Series Screening: Adults aged 18+ yrs (or HM Modifiers)([facility]) (1 of 2) 2040 Pneumococcal Vaccination Screening: Pts 0-19 & 19-49 yrs of age ([facility]) Aged Out No longer eligible based on patient's age to complete this topic Medical Devices Not on file Insurance [facility]
--- OUTSIDE RECORDS SUMMARY | 2024-10-26 15:22 | XMS_ITS ---
Author Organization [facility], [facility] Address [address] [place] [id number] Care Team Providers Care Associate Juvenile Court Judge Name Role Phone BEBETO GLENIS Primary Care Provider ALEIDA KAUR Unavailable [phone] REASON FOR VISIT New Refill Request MEDICATIONS Medication SIG (Take, Route, Frequency, Duration) Notes Start Date End Date Status Amphetamine-Dextroamphetam ine 5 MG 1 tablet Orally Twice a day for 30 days 02/11/2024 Active diazePAM 5 MG 1 tablet as needed O rally Once a day for 30 days 02/11/2024 Active Encounters Encounter Location Date Provider Diagnosis [facility], [address] [id number] 02/09/2024 ALEIDA KAUR Attention deficit hyperactivity disorder (ADHD), combined type F90.2 ASSESSMENTS Encounter Date Diagnosis Assessment Notes Treatment Notes Treatment Clinical Notes Section Notes 02/09/2024 Attention deficit hyperactivity disorder (ADHD), combined type (ICD-10 - F90.2) PLAN OF TREATMENT Medication Medication Name Sig Start Date Stop Date Notes Amphetamine-Dextroamphetamin e 5 MG 1 tablet Orally Twice a day for 30 days 02/11/2024 diazePAM 5 MG 1 tablet as needed O rally Once a day for 30 days 02/11/2024 Progress Notes * ARNOLDKINZA DALLASPAULADOB:1990 (33 yo F)Acc No.[id number]:02/09/2024 Patient:??KERMIT ARNOLD :1990?Age:33 Y?Sex:Fe male Phone: Address:[address] [place] [id number] * Refills?? Refill Amphetamine-Dextroamphetamine Tablet, 5 MG, Orally, 60, 1 tablet, Twice a day, 30 days, Refills=0 Refill diazePAM Tablet, 5 MG, Orally, 30, 1 tablet as needed, Once a day, 30 days, Refills=0 * true * Date:??
--- OUTSIDE RECORDS SUMMARY | 2024-10-26 15:22 | XMS_ITS ---
Author Organization [facility], [facility] Address [address], [place] [phone] Care Team Providers Care Judge Clerk Name Role Phone GLENIS TATE Primary Care Provider [phone] [facility] ALEIDA KAUR Unavailable [phone] REASON FOR VISIT f/u meds Encounters Encounter Location Date Provider Diagnosis [facility], [facility] [address], [place] [phone] 02/10/2024 ALEIDA KAUR PLAN OF TREATMENT No Information Progress Notes * KERMIT ARNOLDDOB:1990 (34 yo F)Acc No.[id number]:02/10/2024 Progress Notes Patient:??KERMIT ARNOLD Provider:??ALEIDA KAUR NP :1990?Age:33 Y?Sex:Fe male Date:02/10/2024 Phone: Address:[address] [place] [address] [id number] Pcp:GLENIS TATE Subjective: * Chief Complaints: * ?1. F/u meds. * Medical History:?? Objective: Assessment: Plan: * Treatment: * Billing Information: * Visit Code:?? * Procedure Codes:?? * Sign off status: Pending * Provider:??ALEIDA KAUR NP Date:??
--- OUTSIDE RECORDS SUMMARY | 2024-10-26 15:22 | XMS_ITS | Clinical Summary ---
Author Organization [facility] Address [address] [place] [address] Phone Care Team Providers Care Electronic Science Teacher Name Role Phone Bashir Gomes NP Primary Care Provider Allergies Active Allergy Reactions Criticality Noted Date Comments Nsaids (Non-Steroidal Anti-Inflammatory Drug) Hives,Wheezing 06/21/2013 Oxycodone-Acetaminophen Swelling,Wheezing 06/21 Medications amphetamine-dextr oamphetamine (ADDERALL) 5 mg tablet Take 1 tablet (5 mg total) by mouth 2 (two) times a day. 4 Active atorvastatin (LIPITOR) 10 mg tablet Take 1 tablet (10 mg total) by mouth at bedtime. 4 Active diazePAM (VALIUM) 5 mg tablet Take by mouth. Act robinson famotidine (PEPCID) 20 mg tablet Take 1 tablet (20 mg total) by mouth 2 (two) times a day. 2 Active fluticasone propionate (FLONASE) 50 mcg/actuation nasal spray Administer 2 sprays into affected nostril(s). 3 Active fluticasone furoate-vilantero L (BREO ELLIPTA) 100-25 mcg/dose inhaler Inhale 1 puff by mouth. 4 Active triamcinolone (KENALOG) 0.1 % cream APPLY EXTERNALLY TWICE A DAY FOR 90 DAYS 4 Active zafirlukast (ACCOLATE) 20 mg tablet Take 1 tablet (20 mg total) by mouth 2 (two) times a day. 4 Active albuterol HFA (Ventolin HFA) 90 mcg/actuation inhaler Inhale 2 puffs by mouth. 4 Active benralizumab (Fasenra Pen) 30 mg/mL auto-injector injection 2 Active tiotropium (SPIRIVA) 18 mcg per inhalation capsuleIndication s:Severe persistent asthma without complication (CMS/HCC) Place 1 capsule (18 mcg total) into inhaler and inhale 1 (one) time each day. 30 capsule 1 5 08/19/19 26 Active Resolved Problems Problem Noted Date Diagnosed Date Resolved Date Family history of breast cancer 04/15/2024 04/15/2024 Overview (04/15/2024): office: [place] Delivery site: [facility] Blood Type: B+ Sequential screen: normal nuchal lucency, harmony low risk, MSAFP negative GBS: Negative TDap: 01/19/14 Flu shot: 07/26/13 Childbirth plans: Desires epidural Natural childbirth. Labor support identified: Bottlefeeding PP BCM: possibly OCPs Female by DNA; name: Shante DESAI's name: IMKayy update Family history of ovarian cancer 04/15/2024 04/15/2024 care, subsequent 04/15/2024 04/15/2024 Encounters Date Type Department Care Team Description 09/02/2024 Telephone Pulmongy [facility] [address] [id number] Alexandra Sol NP start medication 08/19/2024 8:50 AM EST Office Visit Pulmonolgy [facility] [address] [address] Alexandra Sol NP Severe persistent asthma without complication (CMS/HCC) (Primary Dx) from Last 3 Months Immunizations Name Administration Dates Next Due Influenza trivalent, 0.5mL, preservative free (Fluarix; FluLaval; Fluzone) ages 6mo and older (Afluria) 3 years and older 07/26/2013 Tdap Tetanus diptheria acell ular pertussis (Boostrix; Adacel) 7yo and older 01/19/2014 Surgical History Surgery Date Site/Laterality Comments OTHER SURGICAL HISTORY PROCEDURE: FL DILATION & CURETTAGE DX&/THER NONOBSTETRIC; COMMENT: x3 Medical History Medical History Date Comments Asthma DX:Asthma Family history of breast cancer 06/13/2016 DX:Family history of breast cancer Family history of ovarian cancer 06/13/2016 DX:Family history of ovarian cancer Other pulmonary embolism wit hout acute cor pulmonale 02/24/2018 DX:Other pulmonary embolism without acute cor pulmonale (HCC); COMMENT: treated with Xarelto for 1 year Family History Medical History Relation Name Comments Breast cancer Aunt 1 maternal, late 30s early 40s Heart attack Father Uterine cancer Maternal Grandmother decea sed at 79 Heart attack Mother Hypertension Mother Other: ovarian cancer Mother Other: skin cancer Mother Relation Name Status Comments Aunt 1 Aunt 2 Brother Alive x2 half Daughter Alive Father [place] Maternal Grandfather Maternal Grandmother Mother Alive Paternal Grandfather Paternal Grandmother Sister Alive Social History Tobacco Use Types Packs/Day Years Used Date Smoking Tobacco: Never Smokeless Tobacco: Never Alcohol Use Standard Drinks/Week Comments Yes 0 (1 standard drink = 0.6 oz pur e alcohol) Comments Unknown Sex and Gender Information Value Date Recorded Sex Assigned at Not on file Legal Sex Female 7:02 AM EST Gender Identity Not on file Sexual Orientation Not on file Obstetrics History Last Filed Vital Signs Vital Sign Reading Time Taken Comments Blood Pressure 110/70 08/19/2024 9:06 AM EST Pulse 80 08/19/2024 9:06 AM EST Temperature 36.2 ??C (97.2 ??F) 08/19/2024 9:06 AM ES T Respiratory Rate 19 08/19/2024 9:06 AM EST Oxygen Saturation 99% 08/19/2024 9:06 AM EST Inhaled Oxygen Concentration - - Weight 80.6 kg (177 lb 12.8 oz) 08/19/2024 9:06 AM EST Height 162.6 cm (5' 4 ) 08/19/2024 9:06 AM EST Body Mass Index 30.52 08/19/2024 9:06 AM EST Plan of Treatment Health Maintenance Due Date Last Done Comments Pneumococcal Vaccine: Pediatrics (0 to 5 Years) and At-Risk Patients (6 to 64 Years) (1 of 2 - PCV) 2009 Cervical Cancer Screening: Pap Smear 06/13/2019 06/13/2016, 06/13/2016 Depression Screening 07/06/2022 Hepatitis C Screening 07/06/2022 Social Influencers of Health Screening 07/06/2022 DTaP,Tdap,and Td Vaccines (8 - Td or Tdap) 01/20/2024 01/19/2014, 12/01/2001, 10/16/1994, Additional history exists COVID-19 Vaccine ( season) 2024 Influenza Vaccine (#1) 2024 06/06/2020, 2012 HIB Vaccines Completed 12/07/1991, 02/1991, 1990, Additional history exists IPV Vaccines Completed 10/16/1994, 11/25, 1990, Additional history exists MMR Vaccines Completed 10/16/1994, 12/07/1991 Hepatitis B Vaccines Completed 05/14/2002, 02/26/2002, 12/01/2001 HIV Screening Completed 07/15/2013 HPV Vaccines Aged Out No longer eligi ble based on patient's age to complete this topic Hepatitis A Vaccines Aged Out No long er eligible based on patient's age to complete this topic Meningococcal ACWY Vaccine Aged Out N o longer eligible based on patient's age to complete this topic Meningococcal B Vacine Aged Out No lo nger eligible based on patient's age to complete this topic RSV Immunization Patients Under 20 months Aged Out No longer eligible based on patient's age to complete this topic Varicella Vaccines Aged Out No longer eligible based on patient's age to complete this topic Procedures Procedure Name Priority Date/Time Associated Diagnosis Comments FL SLEEP STUDY ATTENDED Routine 08/26/2024 10:33 AM EST HPV Routine 06/13/2016 HIV SCREENING Routine 07/15/2013 from Last 3 Months or Most Recently Relevant to Health Maintenance Results * General sleep study (08/26/2024 10:33 AM EST) us Historical Provider SLEEP CENTER ORDERABLES F inal Result * Cervical Cancer Screening: HPV (06/13/2016) Cervical Cancer Screening: HPV negative abstracted Historical Provider HEALTH MAINTENANCE Final Result * HIV Screening (07/15/2013) Pathologist [facility] [place] HIV Screening abstracted Historical Provider HEALTH MAINTENANCE Final Result from Last 3 Months or Most Recently Relevant to Health Maintenance Insurance [facility] Care Teams Electronic Science Teacher Relationship Specialty Start Date End Date Bashir Gomes NP [address] [facility] [place] Tapia PCP - General 02/07/16
--- OUTSIDE RECORDS SUMMARY | 2024-10-26 15:22 | XMS_ITS | Clinical Summary ---
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 Name Role Phone Unavailable Primary Care Provider Unavailabl e Immunizations Immunization Administration Dates Next Due DTP 10/16/1994, 2,03/04/1991,1990,1990 Hep B, ped/adol 05/14/2002,02/26/2002,12/01/2001 Hib (PRP-T) 12/07/1991, 1,1990,1990 MMR 10/16/1994,12/07/1991 OPV 10/16/1994, 2,1990,1990 Td (adult) (MBL), 2 Lf tetan us toxoid, PF, adsorbed 12/01/2001 Social History Tobacco Use Types Packs/Day Years Used Date Smoking Tobacco: Never Assessed Comments Unknown Sex and Gender Information Value Date Recorded Sex Assigned at Not on file Legal Sex Female 4:25 PM EDT Gender Identity Not on file Sexual Orientation Not on file Plan of Treatment Health Maintenance Due Date Last Done Comments DTaP,Tdap,and Td Vaccines (6 - Tdap) 12/02/2001 12/01/2001, 10/16/1994, 12/07/1991, Additional history exists Varicella Vaccines (1 of 2 - 13+ 2-dose series) 2003 Influenza Vaccines (#1) 2024 COVID-19 Vaccine ( season) 2024 HIB Vaccines Completed 12/07/1991, 0802/1991, 1990, Additional history exists IPV Vaccines Completed 10/16/1994, 11/25, 1990, Additional history exists MMR Vaccines Completed 10/16/1994, 12/07/1991 Hepatitis B Vaccines Completed 05/14/2002, 02/26/2002, 12/01/2001 HPV Vaccines Aged Out No longer eligi ble based on patient's age to complete this topic Hepatitis A Vaccines Aged Out No long er eligible based on patient's age to complete this topic Men B Vaccine Aged Out No longer elig ible based on patient's age to complete this topic Meningococcal Vaccine Aged Out No sisi dorita eligible based on patient's age to complete this topic Pneumococcal Vaccine Aged Out No long er eligible based on patient's age to complete this topic
--- OUTSIDE RECORDS SUMMARY | 2024-10-26 15:23 | XMS_ITS | Patient Health Record ---
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 Name Role Phone GLENIS TATE Primary Care Provider VANDANAANTHONY ALEIDA Unavailable [phone] ALLERGIES Allergen (clinical drug ingredient) Drug/Non Drug Allergy documented on EMR Reaction Allergy Type Onset Date Status acetaminophen / oxycodone Percocet Swelling Drug Allergy Active Non-steroidal anti-inflammatory agent (FN) NSAIDs Swelling Drug Allergy Active REASON FOR REFERRAL No Information MEDICATIONS Medication SIG (Take, Route, Frequency, Duration) Notes Start Date End Date Status Albuterol Sulfate HFA 108 (90 Base) MCG/ACT 1 puff as needed Inhalation every 4 hrs Active Trelegy Ellipta 100-62.5-25 MCG/ACT 1 puff Inhalation Once a day Active Zafirlukast 20 MG 1 tablet 1 hour before or 2 hours after meals Orally Twice a day Active Atorvastatin Calcium 10 MG 1 tablet Orally Once a day for 90 days 09/10/2023 Active Multi Vitamin Daily Active CoQ10 100 MG 1 cap Orally twice a day for 90 days 09/10/2023 Active Amphetamine-Dextroamphe tamine 5 MG 1 tablet Orally Twice a day for 30 days 02/11/2024 Active Dulera 100-5 MCG/ACT 2 puffs Inhalation Twice a day Not-Taking Fluticasone Propionate 50 MCG/ACT 1 spray in each nostril Nasally Once a day Active Triamcinolone Acetonide 0.1 % 1 application Externally twice a day for 90 days 09/10/2023 Active Fasenra Pen 30 MG/ML as directed Subcutaneous 1x/8weeks Active diazePAM 5 MG 1 tablet as needed Orally Once a day for 30 days 02/11/2024 Active SOCIAL HISTORY Tobacco Use: Social History Observation Description Date Details (start date - stop date) Never Smoker NA - NA Sex Assigned At : Social History Observation Description Sex Assigned At Unknown Tobacco Use/Smoking Question Answer Notes Tobacco use: nonsmoker Section Notes: Lives in [place], [place] and 2 daughter and her dog. Lives in [place], [place] and 2 daughter and her dog. Lives in [place], [place] and 2 daughter and her dog. 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 Enjoys crafting, nails, traveling to the [employer]. Lives in [place], [place] and 2 daughter and her dog. 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 Enjoys crafting, nails, traveling to the [employer]. PROBLEMS Problem Type ICD Code Onset Dates Problem Status W/U Status Risk SNOMED Code Notes Problem Impaired fasting glucose (R73.01) Active confirmed 011279209 Problem Encounter for screening for malignant neoplasm of cervix (Z12.4) Active confirmed Screening for malignant neoplasm of cervix (606145490) Problem Obesity (BMI 30.0-34.9) (E66.9) Active confirmed 453070943458183 Problem Hyperlipidemia, unspecified hyperlipidemia type (E78.5) Active confirmed 85364128 Problem Elevated high sensitivity C-reactive protein (R79.82) Active confirmed 786775974620223 Problem Eczema, unspecified type (L30.9) Active confirmed Eczema (76827585) Problem Fatty liver (K76.0) Active confirmed 715247513 Problem Attention deficit hyperactivity disorder (ADHD), combined type (F90.2) Active confirmed 61846101 Problem Mixed anxiety and depressive disorder (F41.8) Active confirmed 872854624 Problem Insulin resistance (E88.819) Active confirmed 697537831 Problem Severe persistent asthma, unspecified whether complicated (J45.50) Active confirmed 260472335 Problem History of pulmonary embolism (Z86.711) Active confirmed 648514321 Problem Family history of due to heart problem at 50 years of age or younger (Z82.41) Active confirmed 422304421 Encounters Encounter Location Date Provider Diagnosis [address] [phone] 02/10/2024 [address]UR [address] [id number] [facility] Attention deficit hyperactivity disorder (ADHD), combined type F90.2 [facility] [address] [facility] [place] [phone] 11/24[facility] [address] [facility] [place] [phone] 02/09/2024 [facility] Attention deficit hyperactivity disorder (ADHD), combined type F90.2 [facility] [address] [facility] [place] [phone] 02/11/2024 [facility] Encounter Date Diagnosis Assessment Notes Treatment Notes Treatment Clinical Notes Section Notes 11/21/2023 Attention deficit hyperactivity disorder (ADHD), combined type (ICD-10 - F90.2) 02/09/2024 Attention deficit hyperactivity disorder (ADHD), combined type (ICD-10 - F90.2) PLAN OF TREATMENT Future Test Test Name Order Date APOLIPOPROTEIN B 09/10/2023 COMPREHENSIVE METABOLIC PANEL 09/10/2023 CRP, HIGH SENSITIVITY 09/10/2023 INSULIN 09/10/2023 LIPID PANEL 09/10/2023 Insurance Providers Payer Name Payer Address Payer Phone Subscriber Number Group Number Insured Name Patient Relationship to Insured Coverage Start Date Coverage End Date TASHI/Richard fong [address] [address] [place] [phone] [id number] KERMIT ARNOLD Self - patient is the insured MEDICAL (GENERAL) HISTORY Medical History History ICD Code Anxiety Asthma Blood Clot (lung) 2018 after surgery Depression Eczema Fallopian Tube Removal 2018 Chicken Pox as a child Surgical History Surgery Date(Month/Year) Salpingectomy 2018 [place] Teeth Removal 2015/2016 Hospitalization History Reason Date(Month/Year) Blood Clot 2018
== END 2024-10-26 13:41 | disposition home or self-care (01) ==
LOC: HO.HMCC 13:08
PROVIDERS: PCP Nurse Practitioner Family; Visit Provider Nurse Practitioner Family
DX: I10 Essential (primary) hypertension (principal); E78.5 Hyperlipidemia, unspecified; E66.9 Obesity, unspecified; Z68.29 Body mass index [BMI] 29.0-29.9, adult

== ENCOUNTER → 2024-10-26 13:08 | Outpatient (BNVA) | payer BC, SELFPAY | PROVIDERS: PCP Nurse Practitioner Family; Visit Provider Nurse Practitioner Family | DX: I10 Essential (primary) hypertension (principal); E78.5 Hyperlipidemia, unspecified; E66.9 Obesity, unspecified; Z68.29 Body mass index [BMI] 29.0-29.9, adult | CPT/HCPCS: 96127 ==

== ENCOUNTER 2025-05-04 08:21 | Outpatient (AMB) | payer OTHER, SELFPAY ==
[2025-05-04 08:24] VITALS: BP 112/70; PULSE 75; RESP 16; TEMP 36.8; O2SAT 97; BMI 27.8
--- NOTE | 2025-05-04 08:24 | A.OFFPC_ITS ---
Vital Signs 05/04/25 08:24 Height 5 ft 5 in Weight 167 lb BMI 27.8 BP 112/70 Blood Pressure Location Lt brachial Position Sitting Respiration 16 Pulse 75 Pulse Source Pulse Oximeter Temp 98.3 F Temp Source Oral Pulse Oximetry (%) 97 Intake Visit Reasons: Annual PE Documentation Designer Required: No Accompanied by: Self / Same As Patient Allergies ibuprofen (IBUPROFEN) Allergy (Unknown, Verified 05/04/25 08:55) ASTHMA naproxen (Aleve) Allergy (Unknown, Verified 05/04/25 08:55) unknown NSAIDS (Non-Steroidal Anti-Inflamma (NSAIDS (NON-STEROIDAL ANTI-INFLAMMA) Allergy (Unknown, Verified 05/04/25 08:55) FACIAL SWELLING oxycodone (Percocet) Allergy (Unknown, Verified 05/04/25 08:55) swelling Tobacco use date assessed: 05/04/25 Dental Screening Dental Screen Date: 05/04/25 HPI Annual PE HPI Details History of Present Illness The patient is a 34-year-old female presenting for a physical examination. Her asthma is well controlled, and she has made significant progress in managing this condition. She maintains regular follow-ups with her impregnator and drier helper and professional sports scout. Health Maintenance Social History Review of Systems - Respiratory: Reports well-controlled a sthma Physical Exam General: Cooperative, healthy appearing, comfortable, no acute distress and well developed Orientation: Patient oriented x3 Limitations: No limitations Head: Normal to inspection Ears: Hearing grossly normal bilaterally Nose: Normal external nose present Face and sinus: Normal facial exam Eyes: Appearance normal, both eyes and all related structures Neck: Normal visual inspection and Yes full ROM Respiratory: Normal respiratory effort and able to speak in complete sentences. Clear to auscultation bilaterally Cardiovascular: Regular rate and rhythm. Normal S1 and S2 GI: Normal to inspection. Soft to palpation and nontender Skin: No rashes or lesions noted Neuro: Patient oriented x3 Extremities: Normal to inspection Results Plan 1. Asthma The patient's asthma is well controlled, and she has shown significant improvement over time. She is advised to continue her current management plan and follow up with her impregnator and drier helper as needed. 2. Preventative Care: Physical Examinati on The patient is undergoing a routine physical examination to monitor her overall health status. Laboratory tests have been ordered as part of this examination. Discussion Notes I discussed with the patient the importance of continuing her current asthma management plan and the need for regular follow-ups with her impregnator and drier helper. We also reviewed the plan to conduct laboratory tests as part of her physical examination. Patient Instructions - Continue current asthma management anastasia n and follow up with your impregnator and drier helper as needed. - Complete the laboratory tests ordered for your physical examination. [facility] Medical History Eczema Anxiety Pulmonary embolism Dyslipidemia HTN (hypertension) Active asthma Surgical History H/O tubal ligation History of bilateral salpingectomy Family History Father History of heart attack Mother Stage III squamous cell carcinoma of lung Mother Cervical cancer HTN (hypertension) Maternal Aunt Breast cancer Maternal Grandmother Uterine cancer Sister No problems noted. Daughter No problems noted. 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 1. Little interest or pleasure in doing things: several days 2. Feeling down, depressed, or hopeless: several days 3. Trouble falling or staying asleep, or sleeping too much: several days 4. Feeling tired or having little energy: several days 5. Poor appetite or overeating: several days 6. Feeling bad about yourself - or that you are a failure or have let yourself or your family down: not at all 7. Trouble concentrating on things, such as reading the newspaper or watching television: several days 8. Moving or speaking so slowly that other people could have noticed. Or the opposite - being so fidgety or restless that you have been moving around a lot more than usual: not at all 9. Thoughts that you would be better off or of hurting yourself in some way: not at all Total score: 6 Depression Screening Interpretation: Negative Depression Screening Done: Yes [address]9527 - PHQ-9 Billing: Yes Source: Developed by Drs. Wilberto Black, Amos Au and colleagues, with an educational juana from [employer]. Thrive Questionnaire Date Thrive assessed: 10/19/24 I am a: Patient What is your living situation today?: I have a steady place to live Within the past 12 months, did the food you bought not last and you didn't have the money to get more?: Never true Within the past 12 months, did you worry whether your food would run out before you got money to buy more?: Never true Do you have trouble paying for medicines?: No Do you have trouble getting transportation to medical appointments?: No Do you have trouble paying your heating and electricity bill?: No Do you have trouble taking care of your child, family member or friend?: No Do you have trouble with day-to-day activities such as bathing, preparing meals, shopping, managing finances, etc.?: No Are you currently unemployed and looking for a job?: No Are you interested in more education?: No Please select the resources that you would like help with: None Currently or been in a relationship where the following occur: No concerns reported THRIVE Score: 0 SINAN-7 AMB Questionnaire SINAN-7 Date SINAN - 7 assessed: 05/04/25 Feeling nervous, anxious, or on edge: 0 = Not at all Not being able to stop or control worryin = Not at all Worrying too much about different things: 0 = Not at all Trouble relaxin = Not at all Being so restless that it is hard to sit still: 0 = Not at all Becoming easily annoyed or irritable: 0 = Not at all Feeling afraid as if something awful might happen: 0 = Not at all Total SINAN-7 score (0-4 normal; 5-9 mild; 10-14 moderate; 15-21 severe): 0 Source: Developed by Drs. Wilberto Black, Amos Au and colleagues, with an educational juana from [employer]. SINAN-7 Assessment Billing SINAN-7 Assessment Tool: SINAN-7 Assessment 07308 Physical exam (Primary Care) Vital Signs: Last Vital Signs Temp 98.3 F 05/04/25 08:24 Pulse 75 05/04/25 08:24 Resp 16 05/04/25 08:24 BP 112/70 05/04/25 08:24 Pulse Ox 97 05/04/25 08:24 BMI result Body Mass Index 27.8 Tobacco/Smoking Status: Tobacco use Status Tobacco use date assessed 05/04/25 05/04/25 08:32 Patient Tobacco Use Status Never used Tobacco 05/04/25 08:32 e-Cigarette/Vaping Use Never Used 05/04/25 08:32 PHQ-9: PHQ-9 Score PHQ-9: Total score 6 05/04/25 08:34 Depression Screening Interpretation: Negative Thrive Assessment: Date of Thrive Assessment Date Thrive assessed 10/19/24 05/04/25 08:32 Currently or been in a relationship where the following occur: No concerns reported Coding Level of Care Code Est Pt Prev Care 18-39y(83061) Diagnoses Physical exam Z00.00 Additional Codes SINAN-7 Assessment Billing - SINAN-7 Assessment Tool: SINAN-7 Assessment 27590 ([id number]) PHQ-9 - 76993 - PHQ-9 Billing: Yes ([id number]) Assessment & Plan Assessment & Plan (1) Physical exam: Code(s): Z00.00 - Encounter for general adult medical examination without abnormal findings Category: Medical Plan .
== END 2025-05-04 09:14 | disposition home or self-care (01) ==
PROVIDERS: PCP Nurse Practitioner Family; Visit Provider Nurse Practitioner Family
DX: Z00.00 Encounter for general adult medical examination without abnormal findings (principal)

== ENCOUNTER 2025-05-04 08:21 | Outpatient (REF) | payer OTHER, SELFPAY | END 2025-05-04 08:22 | disposition home or self-care (01) | LOC: HO.HMGCLDS 08:21 | PROVIDERS: PCP Nurse Practitioner Family; Visit Provider Nurse Practitioner Family | DX: Z00.00 Encounter for general adult medical examination without abnormal findings (principal) | CPT/HCPCS: 96127; 99395 ==